=== PATIENT | female | born 1975 | race Hispanic/Latino ===

== ENCOUNTER 2018-07-08 11:07 | Observation (INO) | payer BC ==
[~2018-07-08] VITALS: Ht 154.9 cm; Wt 94.5 kg
[2018-07-08 12:14] LABS: EOSINOPHILS % (AUTO) 1.8 % (0.0-8.0); HEMATOCRIT 21.4 % (36-48); LYMPHOCYTES % (AUTO) 29.9 % (21.0-51.0); MEAN CORPUSCULAR HGB CONC 27.1 g/dL (32.0-36.0); MEAN CORPUSCULAR VOLUME 55.2 fL (79-99); MONOCYTES % (AUTO) 6.5 % (3.0-13.0); NEUTROPHILS % (AUTO) 60.8 % (40.0-77.0); NUCLEATED RED BLOOD CELLS 0.2 % (0.0-0.19); PLATELET COUNT (AUTO) 430 K/uL (130-400); RED BLOOD CELL COUNT(AUTO) 3.88 MIL/uL (4.00-5.50); RED CELL DISTRIBUTION WIDTH 21.9 % (11.0-15.5); WHITE BLOOD COUNT (AUTO) 8.2 K/uL (4.8-10.8)
[2018-07-08] MEDS ORDERED: ZOLPIDEM TARTRATE 5 MG TAB PO PRN (12:15)
[2018-07-08] MEDS: 1/2 NORMAL SALINE 1,000 ML IV SCH (12:15)
[2018-07-08] MEDS ORDERED: DIPHENHYDRAMINE HCL 25 MG CAPSULE PO PRN (12:15)
[2018-07-08] MEDS ORDERED: ACETAMINOPHEN 325 MG TAB PO PRN (12:15)
[2018-07-08] MEDS ORDERED: ONDANSETRON HCL 4 MG/2 ML VIAL IVP PRN (12:15)
[2018-07-08 12:34] LABS: CREATININE 0.6 mg/dL (0.5-1.5)
[2018-07-08 12:38] LABS: ALBUMIN 3.5 g/dL (3.5-5.0); BILIRUBIN,DIRECT 0.1 mg/dL (0.0-0.3); BILIRUBIN,TOTAL 0.4 mg/dL (0.2-1.0); TOTAL PROTEIN, SERUM 7.5 g/dL (6.0-8.3)
[2018-07-08 13:26] LABS: % IRON SATURATION 2.4 % (22-44)
[2018-07-08] MEDS ORDERED: SODIUM CHLORIDE 0.9% 250 ML IV ONE (22:44)
[2018-07-08 23:10] VITALS: BP 136/54
[2018-07-09 01:33] VITALS: BP 126/58
--- NOTE | 2018-07-09 04:10 | NUR ---
SECOND UNIT OF PRBC'S COMPLETED WITHOUT ANY ADVERSE REACTION. V/S STABLE, PATIENT DENIES ANY DISCOMFORT.
[2018-07-09 05:15] VITALS: BP 118/67
[2018-07-09 07:30] VITALS: BP 127/73
[2018-07-09 07:53] LABS: HEMATOCRIT 27.7 % (36-48); MEAN CORPUSCULAR HEMOGLOBIN 18.7 pg (27.0-33.0); MEAN CORPUSCULAR HGB CONC 29.6 g/dL (32.0-36.0); MEAN CORPUSCULAR VOLUME 63.3 fL (79-99); NUCLEATED RED BLOOD CELLS 0.1 % (0.0-0.19); PLATELET COUNT (AUTO) 304 K/uL (130-400); RED BLOOD CELL COUNT(AUTO) 4.37 MIL/uL (4.00-5.50); RED CELL DISTRIBUTION WIDTH 30.6 % (11.0-15.5); RETICULOCYTE % (AUTO) 1.59 % (0.42-2.23); WHITE BLOOD COUNT (AUTO) 6.7 K/uL (4.8-10.8)
[2018-07-09 08:18] LABS: ALBUMIN 3.1 g/dL (3.5-5.0); BILIRUBIN,TOTAL 1.3 mg/dL (0.2-1.0); CREATININE 0.6 mg/dL (0.5-1.5); POTASSIUM 4.1 mmol/L (3.5-5.1); THYROID STIMULATING HORMONE 3.65 uIU/mL (0.36-3.74); TOTAL PROTEIN, SERUM 6.8 g/dL (6.0-8.3)
[2018-07-09] MEDS ORDERED: PANTOPRAZOLE SODIUM 40 MG TABLET.DR PO SCH (09:00)
[2018-07-09] MEDS: 1/2 NORMAL SALINE 1,000 ML IV SCH ×2 (09:02→23:43)
[2018-07-09 11:00] VITALS: BP 118/72
[2018-07-09] MEDS ORDERED: MAGNESIUM CITRATE 296 ML SOLUTION PO SCH (11:00)
[2018-07-09] MEDS ORDERED: PEG 3350/NA SULF,BICARB,CL/KCL 4000 ML SOLN PO SCH (12:00)
[2018-07-09 16:00] VITALS: BP 128/80
[2018-07-09 20:00] VITALS: BP 122/70
[2018-07-10] VITALS (14 sets, daily range): BP systolic 99–122; BP diastolic 48–83
[2018-07-10] MEDS ORDERED: PROPOFOL 1000 MG/100 ML 100 ML IV ONE (06:18)
[2018-07-10] MEDS ORDERED: LIDOCAINE HCL-MPF 2% 5ML VIAL ONE (06:19)
[2018-07-10] MEDS ORDERED: LIDOCAINE HCL 1% 20 ML VIAL ONE (06:21)
== END 2018-07-10 13:40 | disposition home or self-care (01) ==
LOC: EDH 11:07 → EDHIP 11:28 → 3DH 22:21
PROVIDERS: ADMIT Internal Medicine; ATTEND Internal Medicine
DX: K64.0 First degree hemorrhoids (principal); D12.3 Benign neoplasm of transverse colon; D50.9 Iron deficiency anemia, unspecified; R55 Syncope and collapse; Z79.899 Other long term (current) drug therapy
CPT/HCPCS: 36415 ×2; 36430 ×2; 45380; 80053 ×2; 80061; 81025; 82270; 82607; 82728; 82746; 83540; 83550; 84443; 85025; 85027; 85045; 86850; 86900; 86901; 86922; 96360; 96361 ×2; 99283; G0378 ×50; J2704; J3490; J7030; P9016 ×2; 80076